=== PATIENT | male | born 1990 ===

== ENCOUNTER 2019-09-25 22:13 | Emergency (ER) | payer OTHER ==
[2019-09-25 22:23] VITALS: RESP 18; TEMP 97.9
[2019-09-25] MEDS ORDERED: SODIUM CHLORIDE 0.9% 1,000 ML IV STA (22:44)
[2019-09-25 23:10] LABS: Basophils # (A) 0.1 k/uL (0-0.2); Basophils % (A) 1 %; Eosinophils # (A) 0.3 k/uL (0-0.7); Eosinophils % (A) 3 %; HCT 47.9 % (39.0-53.0); HGB 15.6 gm/dL (13.0-17.5); Lymphocytes # (A) 2.1 k/uL (1.0-4.8); Lymphocytes % (A) 20 %; MCH 30.5 pg (25.0-35.0); MCHC 32.6 g/dL (31.0-37.0); MCV 93.5 fL (80.0-100.0); Mean Platelet Volume 9.1; Monocytes # (A) 0.5 k/uL (0-1.0); Monocytes % (A) 4 %; Neutrophils # (A) 7.3 k/uL (1.3-7.7); Neutrophils % (A) 71 %; Platelet Count 188 k/uL (150-450); RBC 5.13 m/uL (4.30-5.90); RDW 12.6 % (11.5-15.5); WBC 10.4 k/uL (3.8-10.6)
[2019-09-25 23:12] LABS: ALT 26 U/L (4-49); AST 34 U/L (17-59); African American GFR (CKD) >90 (>60 ml/min/1.73 sqM); Albumin 4.8 g/dL (3.5-5.0); Alkaline Phosphatase 88 U/L (38-126); Anion Gap 11 mmol/L; Blood Urea Nitrogen 12 mg/dL (9-20); Carbon Dioxide 23 mmol/L (22-30); Chloride 107 mmol/L (98-107); Creatine Kinase 235 U/L (55-170); Glucose 73 mg/dL (74-99); Non-African American GFR(CKD) >90 (>60 ml/min/1.73 sqM); Potassium 3.4 mmol/L (3.5-5.1); Sodium 141 mmol/L (137-145); Total Bilirubin 0.5 mg/dL (0.2-1.3); Total Protein 7.9 g/dL (6.3-8.2)
[2019-09-25 23:16] LABS: Alcohol 186 mg/dL
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
[2019-09-25 23:25] LABS: Partial Thromboplastin Time 21.9 sec (22.0-30.0); Prothrombin Time 10.5 sec (9.0-12.0)
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
[2019-09-26 01:02] LABS: Amphetamine Screen,Urine Not Detected (NotDetected); Barbiturate Screen,Urine Not Detected (NotDetected); Benzodiazepines Screen,Urine Not Detected (NotDetected); Cocaine Screen,Urine Not Detected (NotDetected); Methadone Screen, Urine Not Detected (NotDetected); Opiate Screen,Urine Not Detected (NotDetected); Oxycodone Screen, Urine Not Detected (NotDetected); Phencyclidine Screen,Urine Not Detected (NotDetected); Tricyclic Antidepressant,Urine Not Detected (NotDetected); Urn Cannabinoid Scrn Detected (NotDetected)
[2019-09-26 01:19] VITALS: BP 105/75; PULSE 72
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
== END 2019-09-26 03:21 | disposition other institution (70) ==
LOC: EC 22:13
DX: S06.0X9A Concussion with loss of consciousness of unspecified duration, initial encounter (principal); S02.40DA Maxillary fracture, left side, initial encounter for closed fracture; S40.212A Abrasion of left shoulder, initial encounter; V86.55XA Driver of 3- or 4- wheeled all-terrain vehicle (ATV) injured in nontraffic accident, initial encounter
CPT/HCPCS: 36415; 70450; 70486; 71046; 72125; 80053; 80306; 80320; 82550; 85025; 85610; 85730; 96360; 99285